=== PATIENT | male | born 1950 | race Two or more races ===

== ENCOUNTER 2017-05-08 05:29 | Inpatient (IN) | payer OTHER ==
[2017-05-08] VITALS (18 sets, daily range): BP systolic 100–142; BP diastolic 60–82
[~2017-05-08] VITALS: Ht 160 cm; Wt 94.3 kg
[2017-05-08] MEDS ORDERED: OMEPRAZOLE20 M2 ORAL (05:36)
[2017-05-08] MEDS ORDERED: VASOTEC10 MG ORAL (05:36)
[2017-05-08] MEDS ORDERED: LINZESS145 MCG PO (05:36)
[2017-05-08] MEDS ORDERED: ZOLOFT100 MG ORAL (05:36)
[2017-05-08] MEDS ORDERED: HYDROCHLOROTHIA25 MG ORAL (05:36)
[2017-05-08] MEDS ORDERED: ASPIRIN81 MG ORAL (05:36)
[2017-05-08] MEDS ORDERED: GLIPIZIDE XL10 M1 ORAL (05:36)
[2017-05-08] MEDS ORDERED: ALPRAZOLAM1 MG ORAL (05:36)
[2017-05-08] MEDS ORDERED: ZOCOR40 MG ORAL (05:36)
[2017-05-08] MEDS ORDERED: METFORMIN HCL500 M1 ORAL (05:36)
[2017-05-08] MEDS ORDERED: VICODIN 5-3001 EACH ORAL (05:36)
[2017-05-08] MEDS ORDERED: FAMOTIDINE40 MG/5 ML PO (05:36)
[2017-05-08] MEDS ORDERED: Pantoprazole Inj IVP ONE (06:00)
[2017-05-08] MEDS ORDERED: Vancomycin 1 GM in D5W 275 ML IVPB ONE (06:00)
[2017-05-08] MEDS ORDERED: Thrombin 5000 units TOPIC ONE (07:13)
[2017-05-08] MEDS ORDERED: Bacitracin 50000 Units Vial ONE ×2 (07:15→12:18)
[2017-05-08] MEDS ORDERED: Gelfoam Absorbable 1gm powder pkt TOPIC ONE (07:15)
[2017-05-08] MEDS ORDERED: Bupivacaine w/Epi 0.5% 30ml Vial INJ ONE (07:15)
[2017-05-08] MEDS ORDERED: Thrombin 5000 units spray kit TOPIC ONE (07:15)
--- NOTE | 2017-05-08 07:46 | Pre-Procedure Note/Attestation ---
Pre-Procedure Note/Attestation Complete Prior to Procedure Planned Procedure: bilateral Procedure Narrative: Anterior cervical discectomy and fusion at the C5-6 and C6-7 level with interbody graft PEEK cage, plate arthrodesis, autograft, allograft and iliac crest bone marrow aspiration. Attestation I attest that I discussed the nature of the procedure; its benefits; risks and complications; and alternatives (and the risks and benefits of such alternatives ), prior to the procedure, with the patient (or the patient's legal software sales representative). I attest that, if there was a reasonable possibility of needing a blood transfusion, the patient (or the patient's legal software sales representative) was given the [place] Department [employer] Services standardized written summary, pursuant to the [place] Blood Safety Act ([place] Health and Safety Code # 1645, as amended). I attest that I re-evaluated the patient just prior to the surgery and that there has been no change in the patient's H&P, except as documented below: MARILEE SO May 08, 2017 07:46
[2017-05-08] MEDS ORDERED: Vancomycin 1gm inj IVPB ONE (07:59)
[2017-05-08] MEDS ORDERED: fentaNYL 100 mcg/2 mL IV ONE (08:00)
[2017-05-08] MEDS ORDERED: LR 1000ml ONE ×2 (08:00)
[2017-05-08] MEDS ORDERED: Zemuron 50mg/5ml Inj IV ONE (08:00)
[2017-05-08] MEDS ORDERED: Propofol 10mg/ml 100ml btl IV ONE (08:00)
[2017-05-08] MEDS ORDERED: Neostigmine 1mg/ml 10ml Inj ONE (08:00)
[2017-05-08] MEDS ORDERED: NS Irrig 1000ml ONE (08:00)
[2017-05-08] MEDS ORDERED: Morphine Sulfate 10mg/ml Inj ONE (08:00)
[2017-05-08] MEDS ORDERED: Glycopyrrolate 0.2mg/ml 1ml Vial ONE (08:00)
[2017-05-08] MEDS ORDERED: Sterile Water Irrig 1000ml IRRIG ONE (08:00)
[2017-05-08] MEDS ORDERED: Dexamethasone 4mg/ml vial ONE (08:00)
[2017-05-08] MEDS ORDERED: LR 1000ml 1,000 ML IVLG SCH (09:18)
--- NOTE | 2017-05-08 09:18 | Anethesia Preoperative Eval ---
Anesthesia Pre-op PMH/ROS General Date of Evaluation: May 08, 2017 Time of Evaluation: 07:20 Anesthesiologist: Denise ASA Score: ASA 3 Mallampati Score Class I : Soft palate, uvula, fauces, pillars visible Class II: Soft palate, uvula, fauces visible Class III: Soft palate, base of uvula visible Class IV: Only hard plate visible Mallampati Classification: Class III Surgeon: Herman Diagnosis: Cervical radiculopathy Surgical Procedure: ACDF C5-6 C6-7 Anesthesia History: none Social History: current smoker Family History: no anesthesia problems Allergies: Coded Allergies: No Known Allergies (Unverified , 05/07/17) Medications: see eMAR - productive cough Past Medical History Cardiovascular: Reports: HTN Pulmonary: Reports: COPD - productive cou, Denies: FANTASMA, asthma, other Gastrointestinal/Genitourinary: Reports: GERD, Denies: CRI, ESRD, other Neurologic/Psychiatric: Reports: other - chronic pain, Denies: CVA, TIA, dementia, depression/anxiety Endocrine: Reports: DM - on pills, Denies: hypothyroidism, other, steroids HEENT: Denies: [place] (L), [place] (R), cataract (L), cataract (R), glaucoma, other Hematology/Immune: Denies: DVT, anemia, bleeding disorder, other Musculoskeletal/Integumentary: Reports: DJD, Denies: DDD, OA, RA, edema, other Other: obesity PMH Narrative: as above PSxH Narrative: L knee arthroplasty Anesthesia Pre-op Phys. Exam Physician Exam Last Vital Signs Date Time Temp Pulse Resp B/P Pulse Ox O2 Delivery O2 Flow Rate FiO2 05/08/17 06:08 98.2 71 18 142/82 95 Room Air Constitutional: NAD Neurologic: CN 2-12 intact Cardiovascular: RRR, no M/R/G Respiratory: other - some wheezing bilaterally Gastrointestinal: S/NT/ND Airway Exam Mallampati Score: Class III MO: full Neck: short, stiff ROM: limited Teeth: intact Dentures: no lower, no upper Anesthesia Pre-op A/P Labs see chart Accucheck 95 at admission Studies Pre-op Studies: EKG - SR Risk Assessment & Plan Assessment: ASA 3 Plan: GA with ETT neuromonitoring Status Change Before Surgery: No Pre-Antibiotics Drug: Vanco 1gr. Gentamjicin 80 mg. Given Within 1 Hr of Incision: Yes Time Given: 08:15 ALBINA ESPINO M.D. May 08, 2017 09:18
[2017-05-08] MEDS ORDERED: Ketorolac 30mg Inj IV PRN (09:30)
[2017-05-08] MEDS ORDERED: DiphenhydrAMINE 50mg/ml Inj IVP PRN (09:30)
[2017-05-08] MEDS ORDERED: Meperidine 25mg/0.5ml Inj IV PRN (09:30)
[2017-05-08] MEDS ORDERED: Midazolam 2mg/2ml Inj IVP PRN (09:30)
[2017-05-08] MEDS ORDERED: Hydromorphone 0.5mg/0.5ml inj IVP PRN (09:30)
[2017-05-08] MEDS ORDERED: Acetaminophen (Non formulary) 100 ML IV ONE (11:30)
--- NOTE | 2017-05-08 11:54 | Brief Operative Note ---
Immediate Post Operative Note Operative Note Chief Complaint: sever neck pain both upper extremity radiating pain weakness w / numbness Pre-op Diagnosis: 1. Intractable neck post-traumatic neck pain and radiculopathy 2. herniated discs with upper extremity radiculopathy, C56 and C67 level. 3. Failure of conservative care 4. bilateral carpal tunnel syndrome. Procedure: 1. Anterior retropharyngeal approach to the cervical spine. 2. Complete disectomies of C5-6 and C6-7 levels 3. Insertion of biomechanical device 17 x 7 x 14 mm PEEK cages at C5-6 and C6-7 under fluoroscopic guidance 4.Anterior arthrodesis using 34 mm plate and 6 x 14 mm screws. [place] system 5. Left iliac crest bone marrow aspiration 6. bilateral foraminotomies C5-6 and C6-7 7. modifier 22 for degree of difficulty 8. Plastic surgical closure of 6 cm cervical wound 9. [id number] neuromonitoring 10. Microdissection 11. Supervision, use and interpretation of fluoroscopy for spinal instrumentation. Post-op Diagnosis: same as pre-op Findings: consistent w/pre-op dx studies Surgeon: marisel Sutton Car Supplier: Sergei Mcconnell MD Anesthesiologist: Denise BUCKNER Anesthesia: general Specimen: yes - disc Complications: none Condition: stable Fluids: 800 cc crystalloids Estimated Blood Loss: none - 50 cc Drains: none Implant(s) used?: Yes - sarah [place] FARDAD May 08, 2017 11:54
--- NOTE | 2017-05-08 11:56 | Immediate Post-Op Evaluation ---
Immediate Post-Op Evalulation Immediate Post-Op Evalulation Procedure: ACDF C5-C6 C6-C7 Date of Evaluation: May 08, 2017 Time of Evaluation: 11:53 IV Fluids: 1000 Blood Products: none Estimated Blood Loss: <50 Urinary Output: none Blood Pressure Systolic: 111 Blood Pressure Diastolic: 63 Pulse Rate: 72 Respiratory Rate: 22 O2 Sat by Pulse Oximetry: 99 Temperature (Fahrenheit): 97.6 Pain Score (1-10): 2 Nausea: No Vomiting: No Complications none Patient Status: reacts, patent, extubated, none Hydration Status: adequate ALBINA ESPINO M.D. May 08, 2017 11:56
[2017-05-08] MEDS ORDERED: Norco 7.5mg/325mg tab ORAL PRN (12:00)
[2017-05-08] MEDS ORDERED: Milk of Magnesia 30ml Ud ORAL PRN (12:00)
--- NOTE | 2017-05-08 12:20 | General Progress Note ---
Progress Note Progress Note Neurosurgery Postop s/ Comfortable O/ VS: Last 24 Hour Vital Signs Date Time Temp Pulse Resp B/P Pulse Ox O2 Delivery O2 Flow Rate FiO2 05/08/17 11:56 72 22 99 05/08/17 11:45 97.8 75 20 110/63 99 Simple Mask 6.0 05/08/17 06:08 98.2 71 18 142/82 95 Room Air Alert and oriented Moves all extremities well sensation at baseline. Incisions are clean, dry and intact Labs Fsbg 214 covered with sliding scale doing well Admit Family updated Dr. Nelson to follow. MARILEE SO May 08, 2017 12:20
[2017-05-08] MEDS: fentaNYL 100 mcg/2 mL IV PRN ×2 (12:35→12:47)
--- NOTE | 2017-05-08 13:41 | Diagnostic Imaging Report ---
Indication: Neck Pain Findings: Fluoroscopic views of the cervical spine were obtained. Anterior fusion plate demonstrated C5, C6 and C7. Discectomy and disc prosthesis noted at C5-6 and C6-7. Impression: Intraoperative imaging
[2017-05-08] MEDS: Norco 7.5mg/325mg tab ORAL PRN (15:12)
[2017-05-08] MEDS: NS w/KCl 20mEq 1,000 ML IV SCH (15:24)
[2017-05-08] MEDS: metFORMIN 500mg tab ORAL SCH (16:35)
[2017-05-08] MEDS: HYDROmorphone 1mg/ml Carpuject IVP PRN ×3 (16:36→23:35)
--- NOTE | 2017-05-08 17:00 | Operative Note - Dictated ---
DATE OF OPERATION: 05/08/2017 PREOPERATIVE DIAGNOSES: 1. Status post close head trauma with postconcussive syndrome and scalp laceration. 2. Posttraumatic intractable severe mechanical axial neck pain and bilateral upper extremity radiculopathy. 3. Disk herniation of C5-C6 and C6-C7 levels with symptomatic bilateral upper extremity radiculopathy. 4. Bilateral carpal tunnel syndrome. 5. Mechanical axial back pain, right lower extremity radiculopathy. 6. History of right knee degenerative joint disease. 7. Lack of improvement from conservative measures. POSTOPERATIVE DIAGNOSES: 1. Status post close head trauma with postconcussive syndrome and scalp laceration. 2. Posttraumatic intractable severe mechanical axial neck pain and bilateral upper extremity radiculopathy. 3. Disk herniation of C5-C6 and C6-C7 levels with symptomatic bilateral upper extremity radiculopathy. 4. Bilateral carpal tunnel syndrome. 5. Mechanical axial back pain, right lower extremity radiculopathy. 6. History of right knee degenerative joint disease. 7. Lack of improvement from conservative measures. PROCEDURE: 1. Right-sided retropharyngeal approach to the cervical spine. 2. Complete diskectomy of C5-C6 and C6-C7 levels with complete removal of cartilage. 3. Bilateral neural foraminotomies at C5-C6 and C6-C7 levels. 4. Insertion of biomechanical device, PEEK cage is at C5-C6 and C6-C7 level under fluoroscopic guidance, a 17 x 7 x 14 millimeter [place] system. 5. Anterior arthrodesis using 34 millimeter plate and six 14 millimeters screws [place] system under fluoroscopic guidance. 6. Left iliac crest bone marrow aspiration. [place] of bone marrow for grafting and fusion. 7. Intraoperative use, supervision and interpretation of fluoroscopy for instrumentation of cervical spine. 8. Intraoperative microdissection using operative microscope. 9. Plastic surgical closure of 6 centimeter cervical wound. 10. Modifier 22, which will be used to denote degree of difficulty. SURGEON: Alfredito Sutton M.D. GEOSPATIAL EXTRACTOR ANALYSIS SURGEON: Sergei Mcconnell M.D. ANESTHESIOLOGIST: Harish Walker M.D. ANESTHESIA TYPE: General endotracheal anesthesia. ESTIMATED BLOOD LOSS: Less than 50 mL. IV FLUIDS: 800 mL. SPECIMEN: Disk. INDICATION: The patient is a pleasant 66-year-old gentleman status post traumatic injury to his head and cervical lumbar spine in March 2016. He has developed severe intractable mechanical axial and neck pain, bilateral upper extremity radiculopathy, lower back pain and right lower extremity radiculopathy. He has undergone a wide-spectrum conservative treatments without improvement. MRI imaging were obtained. MRI imaging along with no diagnostic studies were obtained. Risks, benefits and alternative of surgery explained to him in detail. Risks of the operation including, but not limited to risk of infection, bleeding, nerve damage, paralysis, coma, , spinal fluid leakage, possibility of pseudoarthrosis requiring revision surgery, mishaps with anesthesia including coma and , high likely adjacent segment disease require additional injections or fusion in the future were all discussed with him in detail. He signed a consent to proceed. DETAIL OF PROCEDURE: The patient was taken to the operating room. He was identified. He underwent uneventful video-assisted endotracheal intubation. He was placed supine with a shoulder roll between the shoulder blades and a neck roll behind the posterior aspect of the neck. Head was placed and one pound of Holter traction. AP and lateral fluoroscopic images were obtained to localize the cervical spine. Shoulders were taped bilaterally. Care was taken to pad all pressure points on the head down to the toes. Anterior cervical region and the left iliac region were pre-prepped. Time-out was observed with the circulating nurse. The patient was prepped and draped in sterile fashion. The left iliac crest region was infiltrated using Marcaine. Incision was made using #15 blade. A Jamshidi needle was inserted and 30 mL of bone marrow was aspirated and handed off to a autocad technician, who then returned approximately 3 mL of highly concentrated bone marrow to the field to be mixed with autograft and allograft. Attention was given to the cervical region. The right anterior cervical region was infiltrated using Marcaine and epinephrine at the incision site. Using a #15 blade, a curvilinear incision was made. Bleeders from the skin were coiled using bipolar cautery. A platysma muscle was incised horizontally using a Bovie knife. A bloodless plane was then created along the medial border of the sternocleidomastoid down to the prevertebral fascia. Prevertebral fascia was lifted and incised using Metzenbaum scissors. Carotid artery was identified. Longus colli muscles were lifted bilaterally. Retractors brought to the field and muscles were gently retracted medially. The esophagus and carotid arteries were padded with Gelfoam. Using #15 blade, annulotomy was performed. Complete diskectomy was carried out using angled curettes and the pituitary rongeurs. High-speed drill was used to remove the remainder of the cartilage at the endplates. Two 7 millimeter PEEK cages measuring 17 millimeter width and 14 millimeter depth were then filled with autologous bone graft, allograft and bone marrow aspirate and inserted into the C5-C6 and C6-C7 levels after foraminotomies were performed bilaterally and the posterior longitudinal ligament was carefully removed with micro instruments. Using Kerrison punches, the inferior lip of the posterior vertebral bodies were also gently removed. Partial corpectomy of the C7 vertebrae was performed, which was less than 50% of the vertebral body. Adequate decompression of the nerve roots were obtained and there was significant improvement of the bilateral C7 nerve roots and the right C6 nerve root by neuromonitoring. After insertion of the intervertebral cages, a 34 millimeter plate was then sized and bent to accommodate the anterior cervical curvature. Intraoperative fluoroscopic images showed excellent position of the instrumentation. A six 14 millimeter screws were then used to fix the plate to the anterior cervical bodies at C5, C6 and C7. Excellent purchase of the screws were obtained. The wound was irrigated with copious amount of antibiotic irrigation. Structures within the neck were intact including the esophagus and carotid artery. Meticulous hemostasis was used throughout the case using bipolar cautery and FloSeal. Final x-rays were obtained, which showed excellent position of the plate and the hardware and graft. The skin was closed in multiple layers using 3-0 Vicryl stitches for the muscular and subcutaneous layer and 4-0 Nurolon was used for the subcuticular layer. The incision was closed in a plastic surgical manner. Modifier 22 will be used due to the great depth of the surgical corridor and overall difficulty of the procedure. COMPLICATIONS: None. The patient was extubated in the case moving all extremities. Alfredito Sutton M.D. DR: BONNY JOB#: [id number] CC: MARQUISE
[2017-05-08] MEDS: Docusate 100mg cap ORAL SCH (17:47)
[2017-05-08] MEDS: Pericolace tab ORAL SCH (17:47)
[2017-05-08] MEDS: Vancomycin 1.25 GM in D5W 275 ML IVPB SCH (20:15)
--- NOTE | 2017-05-08 20:40 | General Progress Note ---
Assessment/Plan Status Narrative as/p cervical fusion diabetes hypertenison doing well Assessment/Plan pt ot dvt prophyalxis paincontrol control of blood sugar uisvery important no aspirin Subjective Date patient seen: May 08, 2017 Time patient seen: 20:39 Constitutional: Reports: no symptoms HEENT: Reports: no symptoms Cardiovascular: Reports: no symptoms Allergies: Coded Allergies: No Known Allergies (Unverified , 05/07/17) Objective Last 24 Hour Vital Signs Date Time Temp Pulse Resp B/P Pulse Ox O2 Delivery O2 Flow Rate FiO2 05/08/17 17:00 97.1 05/08/17 16:11 97.1 05/08/17 15:25 118/73 05/08/17 15:20 97.1 72 18 106/63 97 Nasal Cannula 2.0 05/08/17 14:33 97.3 73 16 118/77 97 Nasal Cannula 3.0 05/08/17 14:30 71 14 116/73 95 Nasal Cannula 3.0 05/08/17 14:20 97.0 72 17 100/61 96 Nasal Cannula 2.0 05/08/17 14:15 75 15 114/69 97 Nasal Cannula 3.0 05/08/17 14:00 78 16 113/68 98 Nasal Cannula 3.0 05/08/17 13:45 73 18 117/64 96 Nasal Cannula 3.0 05/08/17 13:32 98.0 05/08/17 13:32 98.0 05/08/17 13:30 70 14 109/68 98 Nasal Cannula 3.0 05/08/17 13:15 73 14 110/67 98 Nasal Cannula 3.0 05/08/17 13:00 68 13 108/64 98 Nasal Cannula 3.0 05/08/17 12:50 98.0 05/08/17 12:50 98.0 05/08/17 12:45 69 15 110/60 98 Nasal Cannula 3.0 05/08/17 12:30 71 20 115/66 98 Nasal Cannula 3.0 05/08/17 12:15 79 17 110/63 95 Nasal Cannula 3.0 05/08/17 12:00 77 14 118/68 97 Nasal Cannula 3.0 05/08/17 11:56 72 22 99 05/08/17 11:50 81 17 111/61 100 Simple Mask 6.0 05/08/17 11:45 97.8 75 20 110/63 99 Simple Mask 6.0 05/08/17 06:08 98.2 71 18 142/82 95 Room Air Intake and Output 05/07/17 05/08/17 19:00 07:00 # Voids 1 Height (Feet): 5 Height (Inches): 3.00 Weight (Pounds): 208 General Appearance: WD/WN Neck: other - has soft cervicla collar Cardiovascular: normal rate, regular rhythm Respiratory/Chest: lungs clear Abdomen: soft TEE SHABAZZ May 08, 2017 20:40
[2017-05-08] MEDS ORDERED: Atorvastatin 20mg tab ORAL SCH (21:00)
[2017-05-08] MEDS: NovoLOG Insulin Flexpen SUBQ SCH (22:05)
[2017-05-09 00:25] VITALS: BP 116/64
[2017-05-09] MEDS: Norco 7.5mg/325mg tab ORAL PRN ×3 (00:52→12:54)
[2017-05-09] MEDS: NS w/KCl 20mEq 1,000 ML IV SCH ×2 (01:00→11:30)
[2017-05-09 04:00] VITALS: BP 121/77
[2017-05-09] MEDS: HYDROmorphone 1mg/ml Carpuject IVP PRN (04:05)
[2017-05-09] MEDS: metFORMIN 500mg tab ORAL SCH ×2 (05:52→11:36)
[2017-05-09 06:25] LABS: BASOPHILS % (AUTO) 0.6 % (0.0-2.0); EOSINOPHILS % (AUTO) 0.2 % (0.0-3.0); LYMPHOCYTES % (AUTO) 15.4 % (20.0-45.0); MEAN CORPUSCULAR HEMOGLOBIN 31.6 PG (27.0-31.0); MEAN CORPUSCULAR HGB CONC 34.5 G/DL (32.0-36.0); MEAN CORPUSCULAR VOLUME 92 FL (80-99); MEAN PLATELET VOLUME 9.2 FL (6.5-10.1); MONOCYTES % (AUTO) 13.2 % (1.0-10.0); NEUTROPHILS % (AUTO) 70.6 % (45.0-75.0); PLATELET COUNT 191 K/UL (150-450); RED BLOOD COUNT 4.02 M/UL (4.70-6.10); RED CELL DISTRIBUTION WIDTH 11.4 % (11.6-14.8); WHITE BLOOD COUNT 14.4 K/UL (4.8-10.8)
[2017-05-09] MEDS ORDERED: GlipiZIDE 10mg tab ORAL SCH (06:30)
[2017-05-09] MEDS: NovoLOG Insulin Flexpen SUBQ SCH ×2 (06:30→11:30)
[2017-05-09 08:00] VITALS: BP 122/72
[2017-05-09] MEDS: Docusate 100mg cap ORAL SCH (08:52)
[2017-05-09] MEDS: Vancomycin 1.25 GM in D5W 275 ML IVPB SCH (08:52)
[2017-05-09] MEDS: Pericolace tab ORAL SCH (08:52)
[2017-05-09] MEDS ORDERED: NORCO 10-325 T1 EACH ORAL ×2 (09:38→09:39)
[2017-05-09] MEDS ORDERED: CYCLOBENZAPRINE10 MG ORAL (09:40)
[2017-05-09 12:00] VITALS: BP 135/74
[2017-05-09 13:09] VITALS: BP 132/74
--- NOTE | 2017-05-09 13:09 | 48 Hour Post Anesthesia Eval ---
Post Anesthesia Evaluation Procedure: ACDF C5-C6 C6-C7 Date of Evaluation: May 09, 2017 Time of Evaluation: 13:08 Blood Pressure Systolic: 132 0: 74 Pulse Rate: 68 Respiratory Rate: 22 Temperature (Fahrenheit): 97.6 O2 Sat by Pulse Oximetry: 98 Airway: patent Nausea: No Vomiting: No Pain Intensity: 3 Hydration Status: adequate Cardiopulmonary Status: stable Mental Status/LOC: patient returned to baseline Follow-up Care/Observations: n/a Post-Anesthesia Complications: none Follow-up care needed: N/A ALBINA ESPINO M.D. May 09, 2017 13:09
[2017-05-09] MEDS ORDERED: LR 1000ml ONE (14:19)
[2017-05-09] MEDS ORDERED: Ketorolac 30mg Inj ONE (14:19)
[2017-05-09] MEDS ORDERED: Tubing IV Secondary IV ONE (14:19)
[2017-05-09] MEDS ORDERED: Propofol 10mg/ml 20ml IV ONE (14:19)
[2017-05-09] MEDS ORDERED: NS 550ML IV ONE (14:19)
[2017-05-09] MEDS ORDERED: Neostigmine 1mg/ml 10ml Inj ONE (14:19)
[2017-05-09] MEDS ORDERED: Morphine Sulfate 10mg/ml Inj ONE (14:19)
[2017-05-09] MEDS ORDERED: GLYCOPYRROLATE 0.2 MG/ML ONE (14:19)
--- NOTE | 2017-05-12 07:29 | Discharge Summary ---
Discharge Summary Hospital Course Date of Admission May 08, 2017 at 05:29 Date of Discharge May 09, 2017 at 14:20 Admitting Diagnosis Disk herniation of C5-C6 and C6-C7 levels with symptomatic bilateral upper extremity radiculopathy. Reason for Hospitalization: ELECTIVE SURGERY ACDF C5-C6 C6-C7 [facility] Arjun Whyte is a 66 year old male who was admitted on May 08, 2017 at 05: 29 for Cervical Stenosis,Radiculopathy all conservative measurers failed and the patient was admitted for elective surgery ACDF C5-C6 C6-C7 [address] Nelson -IM Procedures 05/08/17 dr Sutton ACDF C5-C6 C6-C7 1. Right-sided retropharyngeal approach to the cervical spine. 2. Complete diskectomy of C5-C6 and C6-C7 levels with complete removal of cartilage. 3. Bilateral neural foraminotomies at C5-C6 and C6-C7 levels. 4. Insertion of biomechanical device, PEEK cage is at C5-C6 and C6-C7 level under fluoroscopic guidance, a 17 x 7 x 14 millimeter [place] system. 5. Anterior arthrodesis using 34 millimeter plate and six 14 millimeters screws [place] system under fluoroscopic guidance. 6. Left iliac crest bone marrow aspiration. [place] of bone marrow for grafting and fusion. 7. Intraoperative use, supervision and interpretation of fluoroscopy for instrumentation of cervical spine. 8. Intraoperative microdissection using operative microscope. 9. Plastic surgical closure of 6 centimeter cervical wound. Hospital Course s/p surgery course of recovery uneventful neurovascular intact pain management tolerated diet no difficulties swallowing PT/OT ambulated voided freely bowel regimen BP management with current regimen, stable BS management with current regimen, stable surgeon cleared fo dc follow up with surgeon as outpatient due to the rapid and unexpected improvement in patient condition, the patient was discharged in one day' FINAL DIAGNOSES 1. Status post close head trauma with postconcussive syndrome and scalp laceration. 2. Posttraumatic intractable severe mechanical axial neck pain and bilateral upper extremity radiculopathy. 3. Disk herniation of C5-C6 and C6-C7 levels with symptomatic bilateral upper extremity radiculopathy. 4. S/P ACDF C5-C6 C6-C7 ON 05/08/17 5, HTN 6. Diabetes 7. Bilateral carpal tunnel syndrome. 8. Mechanical axial back pain, right lower extremity radiculopathy. 9. History of right knee degenerative joint disease. Discharge Medications Continued Medications: Alprazolam* (Xanax*) 1 Mg Tablet 1 MG ORAL HS, TAB Cyclobenzaprine Hcl* (Flexeril*) 10 Mg Tablet 10 MG ORAL Q8HR, #60 TAB Enalapril Maleate* (Vasotec*) 10 Mg Tablet 10 MG ORAL BID, TAB Famotidine (Famotidine) 40 Mg/5 Ml Oral.susp 40 MG PO DAILY Glipizide (Glipizide Xl) 10 Mg Tab.er.24 10 MG ORAL BID, #30 TAB 0 Refills Hydrochlorothiazide* (Hydrochlorothiazide*) 25 Mg Tablet 25 MG ORAL DAILY, TAB Hydrocodone Bit/Acetaminophen 10-325* (Prompton 10-325*) 1 Each Tablet 1 TAB ORAL Q6H PRN for For Pain, #60 TAB 0 Refills PRN PAIN Hydrocodone Bit/Acetaminophen 10-325* (Prompton 10-325*) 1 Each Tablet 1 TAB ORAL Q6H PRN for For Pain, #60 TAB 0 Refills PRN PAIN Linaclotide (Linzess) 145 Mcg Capsule 145 MCG PO DAILY, CAP Metformin Hcl* (Metformin Hcl*) 500 Mg Tablet 500 MG ORAL TWICE A DAY, TAB Omeprazole (Omeprazole) 20 Mg Capsule.dr 20 MG ORAL DAILY, CAP Sertraline Hcl* (Zoloft*) 100 Mg Tablet 100 MG ORAL DAILY, TAB Simvastatin (Zocor) 40 Mg Tablet 40 MG ORAL BEDTIME, TAB Discontinued Medications: Aspirin* (Aspirin*) 81 Mg Tab.chew 81 MG ORAL DAILY, TAB Hydrocodone Bit/Acetaminophen (Vicodin 5-300 Mg Tablet) 1 Each Tablet 1 TAB ORAL Q4H PRN for For Pain, #30 TAB 0 Refills Discharge Condition Upon Discharge: stable Discharge Disposition Patient was discharged to Home (01) Discharge Diagnoses: Discharge Instructions Discharge Instructions Special Instructions I have been assigned to complete a D/C Summary on this account. I was not involved in the patient management Enid Galindo NP ([place]) May 12, 2017 07:29
== END 2017-05-09 14:20 | disposition home or self-care (01) | DRG 473 ==
LOC: SDSOVERFLO 05:29 → 3E 14:37
PROC: 0RG20A0 Fusion of 2 or more Cervical Vertebral Joints with Interbody Fusion Device, Anterior Approach, Anterior Column, Open Approach (ICD-10-PCS; principal; 2017-05-08 07:30)
PROC: 07DR3ZZ Extraction of Iliac Bone Marrow, Percutaneous Approach (ICD-10-PCS; principal; 2017-05-08 07:30)
PROC: 01N10ZZ Release Cervical Nerve, Open Approach (ICD-10-PCS; principal; 2017-05-08 07:30)
PROC: 0RT30ZZ Resection of Cervical Vertebral Disc, Open Approach (ICD-10-PCS; principal; 2017-05-08 07:30)
DX: M50.122 Cervical disc disorder at C5-C6 level with radiculopathy (principal); M48.02 Spinal stenosis, cervical region; I10 Essential (primary) hypertension; E11.9 Type 2 diabetes mellitus without complications; E78.5 Hyperlipidemia, unspecified; M17.9 Osteoarthritis of knee, unspecified; G56.03 Carpal tunnel syndrome, bilateral upper limbs; M47.896 Other spondylosis, lumbar region; M54.16 Radiculopathy, lumbar region
CPT/HCPCS: 36415; 72040; 76001; 82962; 83735; 85025; 86850; 86900; 86901; 87070; 87081; C9399; J1815; J2180; J2405; J2710